=== PATIENT | male | born 1950 | race African-American/Black ===

== ENCOUNTER 2016-08-17 19:14 | Inpatient (IN) | payer OTHER ==
[~2016-08-17] VITALS: Ht 172.7 cm; Wt 85.6 kg
[2016-08-17 19:58] LABS: HEMATOCRIT 39.4 % (38.0-50.0); MCHC 34.8 G/DL (30.0-36.0); MCV 89.1 FL (86-99); MEAN PLAT.VOLUME 10.9 uM^3 (9.0-12.4); PLATELET COUNT 187 K/uL (156-360); RBC DIS.WIDTH-SD 54.5 % (39-53); RED BLOOD COUNT 4.42 M/uL (4.00-5.50); WHITE BLOOD COUNT 9.9 K/uL (4.1-10.2)
[2016-08-17 20:09] LABS: CHLORIDE 104 mEq/L (99-109); POTASSIUM 4.3 mEq/L (3.7-5.4); SODIUM 137 mEq/L (136-147)
[2016-08-17 20:11] LABS: GLUCOSE 109 mg/dL (70-99)
[2016-08-17 20:12] LABS: ANION GAP 10 MEQ/L (2-14)
[2016-08-17 20:13] LABS: TOTAL BILIRUBIN 3.5 mg/dL (0.0-1.0)
[2016-08-17 20:14] LABS: ALKALINE PHOSPHATASE 238 IU/L (3-129)
[2016-08-17 20:15] LABS: GFR ESTIMATE (CALCULATED) 43 mL/min/
[2016-08-17 20:16] LABS: UREA NITROGEN (BUN) 30 mg/dL (9-23)
[2016-08-17 20:18] LABS: LIPASE 23 U/L (1.0-51.0)
[2016-08-17 21:59] LABS: ADD MIUA? YES; BILIRUBIN SMALL; BLOOD LARGE; GLUCOSE (STRIP) NEGATIVE; KETONES 5; LEUKOCYTES MODERATE; NITRITE NEGATIVE; PROTEIN (STRIP) 100; SPECIFIC GRAVITY 1.018 (1.000-1.030)
[2016-08-17 22:02] LABS: COLOR DK YELLOW ((YELLOW))
[2016-08-17 22:09] LABS: TROP-I INTERPRETATION NEGATIVE; TROPONIN-I < 0.01 ng/mL (0.0-0.30)
[2016-08-17 22:13] LABS: BACTERIA 4+ /HPF; CASTS NONE SEEN /LPF; CRYSTALS NONE SEEN; EPITHELIAL CELLS 1+ /HPF; MUCUS NONE SEEN /LPF; UCUL ADDED? YES; WHITE BLOOD CELLS 40-50 /HPF (0-5)
[2016-08-17 22:16] LABS: INFLUENZA A VIRAL ANTIGEN NEGATIVE; INFLUENZA B VIRAL ANTIGEN NEGATIVE
[2016-08-18 02:44] VITALS: BP 155/71
[2016-08-18 06:54] LABS: HEMATOCRIT 37.4 % (38.0-50.0); MCH 30.1 PG (29.0-34.0); MCHC 33.4 G/DL (30.0-36.0); MCV 90.1 FL (86-99); MEAN PLAT.VOLUME 11.1 uM^3 (9.0-12.4); PLATELET COUNT 177 K/uL (156-360); RBC DIS.WIDTH-CV 16.9 % (11.8-14.6); RBC DIS.WIDTH-SD 54.2 % (39-53); RED BLOOD COUNT 4.15 M/uL (4.00-5.50); WHITE BLOOD COUNT 8.3 K/uL (4.1-10.2)
[2016-08-18 07:16] LABS: ALKALINE PHOSPHATASE 205 IU/L (3-129); ANION GAP 9 MEQ/L (2-14); CHLORIDE 104 MEQ/L (99-109); GFR ESTIMATE (CALCULATED) 54 mL/min/; GLUCOSE 109 mg/dL (70-99); POTASSIUM 4.4 MEQ/L (3.7-5.4); SAMPLE HEMOLYSIS CHECK 0; SAMPLE ICTERIC CHECK 0; SAMPLE LIPEMIA CHECK 0; SODIUM 136 MEQ/L (136-147); TOTAL BILIRUBIN 2.9 MG/DL (0.0-1.0); UREA NITROGEN (BUN) 31 mg/dL (9-23)
[2016-08-18 08:02] VITALS: BP 126/60
[2016-08-18 15:46] VITALS: BP 141/65
[2016-08-18 23:49] VITALS: BP 153/85
[2016-08-19 07:03] LABS: HEMATOCRIT 36.1 % (38.0-50.0); MCH 30.2 PG (29.0-34.0); MCHC 33.5 G/DL (30.0-36.0); PLATELET COUNT 175 K/uL (156-360); RBC DIS.WIDTH-CV 17.1 % (11.8-14.6); RBC DIS.WIDTH-SD 54.6 % (39-53); RED BLOOD COUNT 4.01 M/uL (4.00-5.50); WHITE BLOOD COUNT 8.5 K/uL (4.1-10.2)
[2016-08-19 07:04] LABS: INTER. NORMALIZED RATIO 1.2; PROTHROMBIN TIME 12.1 (9.2-11.2)
[2016-08-19 07:20] LABS: ANION GAP 9 MEQ/L (2-14); CHLORIDE 105 MEQ/L (99-109); GFR ESTIMATE (CALCULATED) 58 mL/min/; GLUCOSE 93 mg/dL (70-99); POTASSIUM 4.1 MEQ/L (3.7-5.4); SAMPLE HEMOLYSIS CHECK 0; SAMPLE ICTERIC CHECK 0; SAMPLE LIPEMIA CHECK 0; SODIUM 137 MEQ/L (136-147); UREA NITROGEN (BUN) 29 mg/dL (9-23)
[2016-08-19 07:21] LABS: ALKALINE PHOSPHATASE 203 IU/L (3-129); DIRECT BILIRUBIN 1.8 mg/dL (0.0-0.3)
[2016-08-19 08:03] LABS: EOSINOPHIL (%) 1.9 % (0-5); EOSINOPHIL COUNT 0.2 K/uL (0-0.3); HEMATOLOGY COMMENT 1 SMEAR COMPATIBLE; IMMATURE GRANULOCYTE (%) 0.2 % (0.0-0.7); LYMPHOCYTE COUNT 1.6 K/uL (1.0-2.8); MONOCYTE (%) 13.1 % (3-12); MONOCYTE COUNT 1.1 K/uL (0-0.8); NEUTROPHIL (%) 65.5 % (45-76); NEUTROPHIL COUNT 5.6 K/uL (1.8-6.4); USER ID STC
[2016-08-19 08:13] VITALS: BP 132/70
[2016-08-19 11:34] LABS: HBSG INDEX 0.19
[2016-08-19 11:36] LABS: ANTI-HEPATITIS A VIRUS (IGM) Nonreactive; HAV INDEX 0.22
[2016-08-19 11:37] LABS: ANTI-HEPATITIS B CORE (IGM) Nonreactive; HBC IgM INDEX 0.17
[2016-08-19 11:49] LABS: HPCA INDEX 14.45
[2016-08-19 16:05] VITALS: BP 129/67
[2016-08-20 00:29] VITALS: BP 139/74
[2016-08-20 07:41] VITALS: BP 118/62
[2016-08-20 08:48] LABS: HEMATOCRIT 34.8 % (38.0-50.0); MCH 32.6 PG (29.0-34.0); MCHC 36.2 G/DL (30.0-36.0); MCV 89.9 FL (86-99); MEAN PLAT.VOLUME 10.8 uM^3 (9.0-12.4); PLATELET COUNT 161 K/uL (156-360); RBC DIS.WIDTH-CV 17.6 % (11.8-14.6); RBC DIS.WIDTH-SD 55.3 % (39-53); RED BLOOD COUNT 3.87 M/uL (4.00-5.50); WHITE BLOOD COUNT 8.1 K/uL (4.1-10.2)
[2016-08-20 09:01] LABS: INTER. NORMALIZED RATIO 1.2; PTT 28.3 (25-32)
[2016-08-20 09:23] LABS: ALKALINE PHOSPHATASE 211 IU/L (3-129); ANION GAP 10 MEQ/L (2-14); CHLORIDE 105 MEQ/L (99-109); GFR ESTIMATE (CALCULATED) > 59 mL/min/; GLUCOSE 90 mg/dL (70-99); POTASSIUM 4.3 MEQ/L (3.7-5.4); SAMPLE HEMOLYSIS CHECK 0; SAMPLE ICTERIC CHECK 0; SAMPLE LIPEMIA CHECK 0; SODIUM 136 MEQ/L (136-147); TOTAL BILIRUBIN 2.9 MG/DL (0.0-1.0); UREA NITROGEN (BUN) 25 mg/dL (9-23)
[2016-08-20 09:35] VITALS: BP 128/76
[2016-08-20 09:53] VITALS: BP 133/77
[2016-08-20 16:40] VITALS: BP 114/72
[2016-08-20 23:07] VITALS: BP 156/72
[2016-08-21 08:33] VITALS: BP 140/70
[2016-08-21 16:00] VITALS: BP 133/67
[2016-08-21 23:05] VITALS: BP 142/69
[2016-08-22 07:48] VITALS: BP 130/70
[2016-08-22 08:46] LABS: HEMATOCRIT 35.9 % (38.0-50.0); MCH 30.5 PG (29.0-34.0); MCHC 33.4 G/DL (30.0-36.0); MCV 91.3 FL (86-99); MEAN PLAT.VOLUME 11.1 uM^3 (9.0-12.4); PLATELET COUNT 165 K/uL (156-360); RBC DIS.WIDTH-CV 17.7 % (11.8-14.6); RED BLOOD COUNT 3.93 M/uL (4.00-5.50); WHITE BLOOD COUNT 8.8 K/uL (4.1-10.2)
[2016-08-22 08:58] LABS: EOSINOPHIL COUNT 0.2 K/uL (0-0.3); IMMATURE GRANULOCYTE (%) 0.5 % (0.0-0.7); LYMPHOCYTE COUNT 1.5 K/uL (1.0-2.8); MONOCYTE (%) 12.7 % (3-12); MONOCYTE COUNT 1.1 K/uL (0-0.8); NEUTROPHIL (%) 67.5 % (45-76); NEUTROPHIL COUNT 5.9 K/uL (1.8-6.4)
[2016-08-22 09:03] LABS: ALKALINE PHOSPHATASE 200 IU/L (3-129); ANION GAP 7 MEQ/L (2-14); CHLORIDE 103 MEQ/L (99-109); DIRECT BILIRUBIN 1.8 mg/dL (0.0-0.3); GFR ESTIMATE (CALCULATED) > 59 mL/min/; GLUCOSE 124 mg/dL (70-99); POTASSIUM 4.5 MEQ/L (3.7-5.4); SAMPLE HEMOLYSIS CHECK 0; SAMPLE ICTERIC CHECK 0; SAMPLE LIPEMIA CHECK 0; SODIUM 133 MEQ/L (136-147); TOTAL BILIRUBIN 3.2 MG/DL (0.0-1.0); UREA NITROGEN (BUN) 21 mg/dL (9-23)
[2016-08-22 09:38] LABS: HCV RNA (LOG IU/mL) 4.7 (<1.18)
[2016-08-22 15:46] VITALS: BP 141/75
[2016-08-22 22:38] VITALS: BP 134/71
[2016-08-23 08:37] VITALS: BP 132/70
[2016-08-23 14:14] VITALS: BP 126/61
[2016-08-23 23:14] VITALS: BP 132/67
[2016-08-24 07:56] LABS: HEMATOCRIT 33.4 % (38.0-50.0); MCH 31.5 PG (29.0-34.0); MCHC 34.7 G/DL (30.0-36.0); MCV 90.8 FL (86-99); MEAN PLAT.VOLUME 11.2 uM^3 (9.0-12.4); PLATELET COUNT 168 K/uL (156-360); RBC DIS.WIDTH-CV 19.3 % (11.8-14.6); RBC DIS.WIDTH-SD 62.4 % (39-53); RED BLOOD COUNT 3.68 M/uL (4.00-5.50); WHITE BLOOD COUNT 10.8 K/uL (4.1-10.2)
[2016-08-24 09:16] VITALS: BP 137/71
[2016-08-24] MEDS ORDERED: SPIRONOLACTONE25 MG PO (12:27)
[2016-08-24] MEDS ORDERED: PROTONIX40 MG PO (12:27)
[2016-08-24] MEDS ORDERED: TRAMADOL HCL50 MG PO (12:27)
[2016-08-25 11:56] LABS: HIV RNA QUANT VIRAL LOAD < 20 copy/mL (<20)
[2016-08-25 11:57] LABS: HIV RNA QUANT LOG10 RESULT < 1.30 Log(10) (<1.30)
== END 2016-08-24 13:43 | disposition home or self-care (01) | DRG 436 ==
LOC: EME 19:14 → EDOF 08-18 00:37 → 5EAST 08-18 00:37
PROVIDERS: Emergency Medicine; Hospitalist; Internal Medicine; Specialist
DX: C78.7 Secondary malignant neoplasm of liver and intrahepatic bile duct (principal); N17.9 Acute kidney failure, unspecified; I85.00 Esophageal varices without bleeding; C18.0 Malignant neoplasm of cecum; K74.69 Other cirrhosis of liver; K25.9 Gastric ulcer, unspecified as acute or chronic, without hemorrhage or perforation; Z95.2 Presence of prosthetic heart valve; B19.20 Unspecified viral hepatitis C without hepatic coma; E86.0 Dehydration; R63.4 Abnormal weight loss; N39.0 Urinary tract infection, site not specified; R51 Headache; R60.0 Localized edema; F17.210 Nicotine dependence, cigarettes, uncomplicated; R63.0 Anorexia; F14.10 Cocaine abuse, uncomplicated
CPT/HCPCS: 70450; 71020; 71250; 74176; 77012; 78582; 80048; 80053; 80074; 80076; 81003; 82378; 83605; 83690; 83880; 84443; 84484; 85025; 85027; 85610; 85730; 86301 90; 87040; 87077; 87086; 87186; 87502; 87522 90; 87536; 88305; 88307; 88341 TC; 88342 TC; 93306; 93970; 94640; 99281; 99285; A9539; A9540; C9113; G0103; J0696; J1644; J2405; J2765; J3010; J7030; J7050

== ENCOUNTER 2016-09-01 10:43 | Inpatient (IN) | payer OTHER ==
[~2016-09-01] VITALS: Ht 170.2 cm; Wt 87.2 kg
[~2016-09-01 10:43] MED LIST: PROTONIX40 MG PO; SPIRONOLACTONE25 MG PO; TRAMADOL HCL50 MG PO
[2016-09-01 12:39] LABS: HEMATOCRIT 33.9 % (38.0-50.0); MCH 31.6 PG (29.0-34.0); MCHC 35.4 G/DL (30.0-36.0); MCV 89.2 FL (86-99); MEAN PLAT.VOLUME 10.7 uM^3 (9.0-12.4); NRBC (%) 0.2 /100 WBC (0-0); PLATELET COUNT 202 K/uL (156-360); RBC DIS.WIDTH-CV 21.7 % (11.8-14.6); RBC DIS.WIDTH-SD 66.2 % (39-53); WHITE BLOOD COUNT 9.8 K/uL (4.1-10.2)
[2016-09-01 12:54] LABS: CHLORIDE 108 mEq/L (99-109); POTASSIUM 4.3 mEq/L (3.7-5.4); SODIUM 139 mEq/L (136-147)
[2016-09-01 12:56] LABS: GLUCOSE 88 mg/dL (70-99)
[2016-09-01 12:57] LABS: ANION GAP 10 MEQ/L (2-14)
[2016-09-01 12:58] LABS: TOTAL BILIRUBIN 5.2 mg/dL (0.0-1.0)
[2016-09-01 12:59] LABS: ALKALINE PHOSPHATASE 256 IU/L (3-129)
[2016-09-01 13:00] LABS: GFR ESTIMATE (CALCULATED) 58 mL/min/
[2016-09-01 13:01] LABS: UREA NITROGEN (BUN) 22 mg/dL (9-23)
[2016-09-01 13:03] LABS: LIPASE 333 U/L (1.0-51.0)
[2016-09-01 14:05] LABS: BASOPHIL COUNT 0.1 K/uL (0-0.1); EOSINOPHIL (%) 2.3 % (0-5); EOSINOPHIL COUNT 0.2 K/uL (0-0.3); IMMATURE GRANULOCYTE (%) 0.6 % (0.0-0.7); IMMATURE GRANULOCYTE COUNT 0.1 K/uL; INSTRUMENT ABS NEUTROPHIL CT 7.1 K/uL; LYMPHOCYTE COUNT 1.3 K/uL (1.0-2.8); MONOCYTE (%) 10.6 % (3-12); NEUTROPHIL (%) 72.5 % (45-76); NEUTROPHIL COUNT 7.1 K/uL (1.8-6.4)
[2016-09-01 14:08] LABS: ADD MIUA? YES; BILIRUBIN MODERATE; BLOOD MODERATE; COLOR AMBER ((YELLOW)); GLUCOSE (STRIP) NEGATIVE; KETONES NEGATIVE; LEUKOCYTES TRACE; NITRITE NEGATIVE; PROTEIN (STRIP) 100
[2016-09-01 14:12] LABS: BACTERIA RARE /HPF; EPITHELIAL CELLS RARE /HPF; MUCUS 1+ /LPF; UCUL ADDED? NO
[2016-09-01 14:33] LABS: ICTOTEST POSITIVE
[2016-09-01 18:59] LABS: BASE EXCESS -1.2 mEq/L (-3 to +3); BICARBONATE 22.6 mEq/L (22-26); CARBOXY HGB 2.7 % (0-5); COMMENTS - BLOOD GASES C+; FI02 21 %; PCO2 34 mm Hg (35-45); PO2 73 mm Hg (80-100); SITE LR; pH 7.43 (7.35-7.45)
[2016-09-01 19:07] LABS: INTER. NORMALIZED RATIO 1.2; PROTHROMBIN TIME 12.7 (9.2-11.2)
[2016-09-01 20:12] VITALS: BP 138/65
[2016-09-01 20:25] VITALS: BP 138/65
[2016-09-01 23:28] VITALS: BP 143/85
[2016-09-02 03:06] VITALS: BP 119/66
[2016-09-02 04:18] LABS: BASOPHIL COUNT 0.1 K/uL (0-0.1); EOSINOPHIL (%) 2.2 % (0-5); EOSINOPHIL COUNT 0.2 K/uL (0-0.3); HEMATOCRIT 33.2 % (38.0-50.0); IMMATURE GRANULOCYTE (%) 0.6 % (0.0-0.7); IMMATURE GRANULOCYTE COUNT 0.1 K/uL; INSTRUMENT ABS NEUTROPHIL CT 7.4 K/uL; LYMPHOCYTE COUNT 1.4 K/uL (1.0-2.8); MCH 31.3 PG (29.0-34.0); MCHC 35.2 G/DL (30.0-36.0); MCV 88.8 FL (86-99); MEAN PLAT.VOLUME 9.9 uM^3 (9.0-12.4); MONOCYTE (%) 9.3 % (3-12); MONOCYTE COUNT 0.9 K/uL (0-0.8); NEUTROPHIL (%) 72.9 % (45-76); NEUTROPHIL COUNT 7.4 K/uL (1.8-6.4); PLATELET COUNT 206 K/uL (156-360); RBC DIS.WIDTH-CV 21.6 % (11.8-14.6); RBC DIS.WIDTH-SD 65.9 % (39-53); RED BLOOD COUNT 3.74 M/uL (4.00-5.50); WHITE BLOOD COUNT 10.1 K/uL (4.1-10.2)
[2016-09-02 04:46] LABS: CHLORIDE 108 mEq/L (99-109); INTER. NORMALIZED RATIO 1.3; POTASSIUM 4.7 mEq/L (3.7-5.4); PROTHROMBIN TIME 13.1 (9.2-11.2); SODIUM 138 mEq/L (136-147)
[2016-09-02 04:48] LABS: GLUCOSE 76 mg/dL (70-99)
[2016-09-02 04:49] LABS: ANION GAP 9 MEQ/L (2-14)
[2016-09-02 04:50] LABS: TOTAL BILIRUBIN 5.4 mg/dL (0.0-1.0)
[2016-09-02 04:52] LABS: ALKALINE PHOSPHATASE 237 IU/L (3-129); GFR ESTIMATE (CALCULATED) 54 mL/min/
[2016-09-02 04:53] LABS: UREA NITROGEN (BUN) 24 mg/dL (9-23)
[2016-09-02 04:55] LABS: LIPASE 31 U/L (1.0-51.0)
[2016-09-02 05:28] LABS: IRON 61 MCG/DL (35-150)
[2016-09-02 08:01] VITALS: BP 130/67
[2016-09-02 08:04] LABS: FERRITIN 486 NG/ML (22-322)
[2016-09-02 11:30] VITALS: BP 127/71
[2016-09-02 15:46] VITALS: BP 128/69
[2016-09-02 19:55] VITALS: BP 159/72
[2016-09-02 23:00] VITALS: BP 127/58
[2016-09-03 03:24] VITALS: BP 131/83
[2016-09-03 06:49] LABS: BASOPHIL COUNT 0.1 K/uL (0-0.1); EOSINOPHIL COUNT 0.2 K/uL (0-0.3); HEMATOCRIT 33.4 % (38.0-50.0); IMMATURE GRANULOCYTE (%) 0.7 % (0.0-0.7); IMMATURE GRANULOCYTE COUNT 0.1 K/uL; INSTRUMENT ABS NEUTROPHIL CT 7.3 K/uL; LYMPHOCYTE COUNT 1.5 K/uL (1.0-2.8); MCH 31.5 PG (29.0-34.0); MCHC 34.4 G/DL (30.0-36.0); MCV 91.5 FL (86-99); MEAN PLAT.VOLUME 10.9 uM^3 (9.0-12.4); MONOCYTE (%) 11.6 % (3-12); MONOCYTE COUNT 1.2 K/uL (0-0.8); NEUTROPHIL (%) 69.9 % (45-76); NEUTROPHIL COUNT 7.3 K/uL (1.8-6.4); PLATELET COUNT 210 K/uL (156-360); RBC DIS.WIDTH-CV 22.8 % (11.8-14.6); RBC DIS.WIDTH-SD 71.7 % (39-53); RED BLOOD COUNT 3.65 M/uL (4.00-5.50); WHITE BLOOD COUNT 10.4 K/uL (4.1-10.2)
[2016-09-03 07:14] LABS: ALKALINE PHOSPHATASE 192 IU/L (3-129); ANION GAP 9 MEQ/L (2-14); CHLORIDE 103 MEQ/L (99-109); GFR ESTIMATE (CALCULATED) 40 mL/min/; GLUCOSE 89 mg/dL (70-99); POTASSIUM 4.8 MEQ/L (3.7-5.4); SAMPLE HEMOLYSIS CHECK 0; SAMPLE ICTERIC CHECK 2; SAMPLE LIPEMIA CHECK 0; SODIUM 134 MEQ/L (136-147); TOTAL BILIRUBIN 6.7 MG/DL (0.0-1.0); UREA NITROGEN (BUN) 27 mg/dL (9-23)
[2016-09-03 07:55] VITALS: BP 126/68
[2016-09-03 11:49] VITALS: BP 120/56
[2016-09-03 16:16] VITALS: BP 128/63
[2016-09-03 19:24] VITALS: BP 134/73
[2016-09-03 23:52] VITALS: BP 136/70
[2016-09-04 03:48] VITALS: BP 128/78
[2016-09-04 07:30] VITALS: BP 124/66
[2016-09-04 07:33] LABS: BASOPHIL COUNT 0.1 K/uL (0-0.1); EOSINOPHIL (%) 2.7 % (0-5); EOSINOPHIL COUNT 0.3 K/uL (0-0.3); HEMATOCRIT 32.9 % (38.0-50.0); IMMATURE GRANULOCYTE (%) 0.4 % (0.0-0.7); INSTRUMENT ABS NEUTROPHIL CT 7.4 K/uL; LYMPHOCYTE COUNT 1.3 K/uL (1.0-2.8); MCH 31.5 PG (29.0-34.0); MCHC 34.7 G/DL (30.0-36.0); MCV 90.9 FL (86-99); MEAN PLAT.VOLUME 10.9 uM^3 (9.0-12.4); MONOCYTE (%) 10.3 % (3-12); NEUTROPHIL (%) 72.7 % (45-76); NEUTROPHIL COUNT 7.4 K/uL (1.8-6.4); PLATELET COUNT 197 K/uL (156-360); RBC DIS.WIDTH-CV 22.7 % (11.8-14.6); RBC DIS.WIDTH-SD 71.2 % (39-53); RED BLOOD COUNT 3.62 M/uL (4.00-5.50); WHITE BLOOD COUNT 10.1 K/uL (4.1-10.2)
[2016-09-04 08:00] LABS: ALKALINE PHOSPHATASE 189 IU/L (3-129); ANION GAP 9 MEQ/L (2-14); CHLORIDE 104 MEQ/L (99-109); GFR ESTIMATE (CALCULATED) 43 mL/min/; GLUCOSE 77 mg/dL (70-99); POTASSIUM 4.7 MEQ/L (3.7-5.4); SAMPLE HEMOLYSIS CHECK 0; SAMPLE ICTERIC CHECK 1; SAMPLE LIPEMIA CHECK 0; SODIUM 135 MEQ/L (136-147); TOTAL BILIRUBIN 6.8 MG/DL (0.0-1.0); UREA NITROGEN (BUN) 28 mg/dL (9-23)
[2016-09-04 11:25] VITALS: BP 126/60
[2016-09-04 15:15] VITALS: BP 127/59
[2016-09-04 19:29] VITALS: BP 125/72
[2016-09-05 00:03] VITALS: BP 136/75
[2016-09-05 04:09] VITALS: BP 146/68
[2016-09-05 07:20] LABS: HEMATOCRIT 32.4 % (38.0-50.0); MCH 31.9 PG (29.0-34.0); MCHC 35.2 G/DL (30.0-36.0); MCV 90.8 FL (86-99); MEAN PLAT.VOLUME 10.1 uM^3 (9.0-12.4); PLATELET COUNT 201 K/uL (156-360); RBC DIS.WIDTH-CV 22.6 % (11.8-14.6); RBC DIS.WIDTH-SD 70.5 % (39-53); RED BLOOD COUNT 3.57 M/uL (4.00-5.50); WHITE BLOOD COUNT 10.3 K/uL (4.1-10.2)
[2016-09-05 09:50] VITALS: BP 122/60
[2016-09-05] MEDS ORDERED: BENTYL20 MG PO (10:47)
[2016-09-05] MEDS ORDERED: ANTIVERT25 MG PO (10:48)
[2016-09-05] MEDS ORDERED: DOCUSATE SODIU100 MG PO (10:48)
[2016-09-05] MEDS ORDERED: ELIQUIS2.5 MG PO (10:48)
[2016-09-05] MEDS ORDERED: ZOFRAN4 MG PO (10:54)
[2016-09-05 12:01] VITALS: BP 129/66
[2016-09-05 12:08] LABS: HCV RNA (LOG IU/mL) 4.01 (<1.18)
[2016-09-06 02:35] LABS: HCG Total (Tumor Marker)+ <2 mIU/mL (<5)
== END 2016-09-05 14:25 | DRG 438 ==
LOC: EME 10:43 → EDOF 15:54 → 4EAST 15:54 → EDOF 18:38 → 4EAST 20:06
PROVIDERS: Emergency Medicine; Hospitalist; Internal Medicine; Internal Medicine Medical Oncology; Physician Assistant Medical; Specialist
DX: K85.80 Other acute pancreatitis without necrosis or infection (principal); I81 Portal vein thrombosis; J18.9 Pneumonia, unspecified organism; K83.1 Obstruction of bile duct; I82.220 Acute embolism and thrombosis of inferior vena cava; C78.7 Secondary malignant neoplasm of liver and intrahepatic bile duct; I85.00 Esophageal varices without bleeding; R18.0 Malignant ascites; R17 Unspecified jaundice; J98.11 Atelectasis; Z51.5 Encounter for palliative care; Z66 Do not resuscitate; N18.1 Chronic kidney disease, stage 1; K59.00 Constipation, unspecified; B18.2 Chronic viral hepatitis C; Z95.2 Presence of prosthetic heart valve; F17.210 Nicotine dependence, cigarettes, uncomplicated; E87.70 Fluid overload, unspecified; D64.9 Anemia, unspecified; I48.2 Chronic atrial fibrillation; R31.9 Hematuria, unspecified; M60.9 Myositis, unspecified; E66.9 Obesity, unspecified; Z68.30 Body mass index [BMI] 30.0-30.9, adult; F19.10 Other psychoactive substance abuse, uncomplicated
CPT/HCPCS: 36600; 71020; 74177; 76705; 80053; 81003; 82105 90; 82728; 82803; 83540; 83605; 83690; 83735; 84466; 84702 90; 85025; 85027; 85610; 85730; 87040; 87522 90; 93976; 99281; 99285; C9113; J0456; J1650; J2270; J2405; J2543; J3370; J7030; J7040; J7050